=== PATIENT | male | born 1970 | race Caucasian/White ===

== ENCOUNTER 2017-07-22 09:35 | Emergency (ER) | payer OTHER ==
[~2017-07-22] VITALS: Ht 190.5 cm; Wt 108.9 kg
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
[2017-07-22] MEDS ORDERED: ACETAMINOPHEN ES 500 MG TABLET PO ONE (10:00)
[2017-07-22] MEDS ORDERED: ACETAMINOPHEN ES 500 MG TABLET ONE (10:23)
[2017-07-22 11:37] VITALS: BP 127/84
--- NOTE | 2017-07-22 11:38 | NUR ---
Patient discharged, in custody, in stable condition. Written and verbal after care instructions given. Patient verbalizes understanding of instruction.
== END 2017-07-22 11:38 ==
LOC: ER 09:40
DX: S00.83XA Contusion of other part of head, initial encounter (principal); W22.8XXA Striking against or struck by other objects, initial encounter; Y93.89 Activity, other specified; Y92.89 Other specified places as the place of occurrence of the external cause; Y99.8 Other external cause status; Z88.0 Allergy status to penicillin
CPT/HCPCS: 70450; 70486; 99284; A4606; Z7610